=== PATIENT | male | born 2000 | race African-American/Black ===

== ENCOUNTER 2023-02-09 17:15 | Emergency (ER) | payer MEDICAID ==
[~2023-02-09] VITALS: Ht 185 cm; Wt 63.5 kg
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
[2023-02-09 17:38] VITALS: BP 100/71
== END 2023-02-09 17:37 | disposition home or self-care (01) ==
LOC: ER 17:27
DX: S09.90XA Unspecified injury of head, initial encounter (principal); S00.01XA Abrasion of scalp, initial encounter; Z28.310 Unvaccinated for COVID-19; Y04.8XXA Assault by other bodily force, initial encounter; Y93.01 Activity, walking, marching and hiking
CPT/HCPCS: 99283